=== PATIENT | female | born 1975 | race American Indian/Alaskan Native ===

== ENCOUNTER → 2016-12-02 | Outpatient (CLI) | payer OTHER | LOC: SLR 11:00 | PROVIDERS: ATTEND Specialist | DX: G47.30 Sleep apnea, unspecified (principal); E66.9 Obesity, unspecified | CPT/HCPCS: G0399 ==

== ENCOUNTER 2016-12-28 11:00 | Outpatient (CLI) | payer OTHER | END 2016-12-28 11:01 | disposition home or self-care (01) | LOC: SLR 11:00 | PROVIDERS: ATTEND Specialist | DX: G47.33 Obstructive sleep apnea (adult) (pediatric) (principal); E66.9 Obesity, unspecified | CPT/HCPCS: 95811 ==

== ENCOUNTER → 2018-08-08 | Outpatient (CLI) | payer OTHER | END | disposition home or self-care (01) | LOC: SLR 11:00 | PROVIDERS: ATTEND Otolaryngology | DX: G47.30 Sleep apnea, unspecified (principal) | CPT/HCPCS: G0399 ==